=== PATIENT | female | born 1990 | race Caucasian/White ===

== ENCOUNTER 2019-05-19 08:32 | Emergency (ER) | payer BC ==
[~2019-05-19] VITALS: Ht 152.4 cm; Wt 70.3 kg
[2019-05-19 09:11] LABS: ABSOLUTE NEUTROPHILS 8.9 thou/uL (1.4-8.2); BASOPHILS 0.5 % (0.0-2.0); EOSINOPHILS 0.3 % (0.0-3.0); HEMATOCRIT 42.2 % (37.0-47.0); HEMOGLOBIN 14.1 gm/dL (12.0-15.0); MCH 29.7 pg (26.0-34.0); MCHC 33.3 g/dL (28.0-37.0); MCV 89.1 fL (80.0-100.0); PLATELET COUNT 269 thou/uL (150-400); POLYS 65.2 % (36.0-66.0); RBC 4.73 mil/uL (4.20-5.00); RDW 12.5 % (10.5-14.5); WBC 13.6 thou/uL (4.0-11.0)
[2019-05-19 09:34] LABS: ANION GAP 14 mmol/L (7-16); BUN 7 mg/dL (7-18); CALCIUM 9.5 mg/dL (8.5-10.1); CHLORIDE 105 mmol/L (98-107); CO2 23 mmol/L (21-32); CREATININE 0.8 mg/dL (0.6-1.0); GLUCOSE 94 mg/dL (74-106); SODIUM 142 mmol/L (136-145)
[2019-05-19 09:44] LABS: ALBUMIN 3.9 g/dL (3.4-5.0); MAGNESIUM 1.9 mg/dL (1.8-2.4); SGOT 15 U/L (15-37); SGPT 23 U/L (30-65); TOTAL BILIRUBIN 0.3 mg/dL (<0.1-1.0); TROPONIN-I <0.06 ng/mL (<0.06)
[2019-05-19] MEDS ORDERED: MECLIZINE HCL25 M1 PO (10:22)
[2019-05-19] MEDS ORDERED: ZOFRAN ODT4 MG DISSOLVE (10:22)
[2019-05-19 10:40] LABS: URINE BILIRUBIN NEGATIVE (Negative); URINE BLOOD TRACE (Negative); URINE CLARITY CLEAR; URINE COLOR YELLOW; URINE GLUCOSE-RANDOM* NEGATIVE (Negative); URINE KETONES NEGATIVE (Negative); URINE LEUKOCYTES-REFLEX NEGATIVE (Negative); URINE NITRITE-REFLEX NEGATIVE (Negative); URINE PROTEIN (DIPSTICK) NEGATIVE (Negative); URINE SPECIFIC GRAVITY >= 1.030 (1.005-1.035); URINE UROBILINOGEN 0.2 E.U./dl (0.2-1.0)
[2019-05-19 10:58] VITALS: BP 138/88
--- NOTE | 2019-05-20 14:20 | EKG ---
[address] [address] ELECTROCARDIOGRAM REPORT Name: ENA POMPA Room #: DEP Vitcoriano#: [id number] Admission: 05/19/19 Attend Phys: Discharge: 05/19/19 Date of : 89 Report #: [id number] THIS REPORT FOR: //name// [facility] ED Test Date: 2019-05-19 Test Time: 09:56:51 Pat Name: ENA POMPA Department: Room: Gender: F Java Programmer Analyst: esheets : 1990 Requested By: Patel Brown Order Number: [id number] MD: Jaison Foster Measurements Intervals [place] Rate: 74 P: 57 LA: 127 QRS: 72 QRSD: 83 T: 38 QT: 398 QTc: 442 Interpretive Statements Sinus rhythm No previous ECG available for comparison Electronically Signed On 05-20-2019 14:20:06 BASKETBALL COMMENTATOR by Jaison Foster [email or web address] <ELECTRONICALLY SIGNED> By: Jaison Foster MD 05/20/19 1420 [id number] Jaison Foster MD /DEION
== END 2019-05-19 11:01 | disposition home or self-care (01) ==
LOC: ER 08:32
PROVIDERS: Emergency Medicine
DX: S09.8XXA Other specified injuries of head, initial encounter (principal); E87.6 Hypokalemia; R55 Syncope and collapse; R11.2 Nausea with vomiting, unspecified; R42 Dizziness and giddiness; F17.210 Nicotine dependence, cigarettes, uncomplicated; W18.2XXA Fall in (into) shower or empty bathtub, initial encounter; Y92.89 Other specified places as the place of occurrence of the external cause; Y93.89 Activity, other specified; Y99.8 Other external cause status